=== PATIENT | male | born 1995 | race Caucasian/White ===

== ENCOUNTER 2018-04-06 14:17 | Emergency (ER) | payer OTHER ==
[2018-04-06] MEDS: NORCO, ANEXSIA 5/325MG TABLET (HYDROcodone/ACETAMINOPHEN) PO (16:11)
[2018-04-06] MEDS: IBUPROFEN 600 MG TAB PO (16:12)
[2018-04-06] MEDS: ADACEL/BOOSTRIX VACCINE (DIPHTH/PERTUSS/ACELL/TETANUS)0.5ML SYR (90715) IM (17:39)
== END 2018-04-06 17:45 | disposition home or self-care (01) ==
LOC: M ED 14:17
DX: S69.92XA Unspecified injury of left wrist, hand and finger(s), initial encounter (principal); W22.8XXA Striking against or struck by other objects, initial encounter; Y92.59 Other trade areas as the place of occurrence of the external cause; Y99.0 Civilian activity done for income or pay; H93.19 Tinnitus, unspecified ear; Z87.891 Personal history of nicotine dependence
CPT/HCPCS: 90715

== ENCOUNTER → 2021-11-25 | Outpatient (REF) | payer OTHER ==
[2021-11-25 12:27] LABS: SEMEN APPEARANCE OPAQUE (OPAQUE); SEMEN VISCOSITY LIQUID (LIQUID); SEMEN VOLUME 4.2 ml (2.0-5.0); SEMEN pH 8.5 (7.0-8.0)
[2021-11-25 12:28] LABS: SPERM CONCENTRATION 54.3 M/ml (>=15.0); WBC CONCENTRATION <=1 M/ml (<=1 M/ml)
== END ==
LOC: M LAB REF 12:23
PROVIDERS: ATTEND Physician Assistant
DX: N46.9 Male infertility, unspecified (principal)

== ENCOUNTER → 2024-09-04 | Outpatient (REF) | LOC: M PLAIMG 13:34 | PROVIDERS: ATTEND Nurse Practitioner Family | DX: M99.04 Segmental and somatic dysfunction of sacral region (principal) ==